=== PATIENT | male | born 1970 | race Two or more races ===

== ENCOUNTER → 2016-04-23 | Outpatient (CLI) | payer OTHER, SELFPAY | END | disposition disaster alternative care site (69) | LOC: GRAD 07:50 | DX: R31.9 Hematuria, unspecified (principal); K44.9 Diaphragmatic hernia without obstruction or gangrene; R93.421 Abnormal radiologic findings on diagnostic imaging of right kidney; R93.422 Abnormal radiologic findings on diagnostic imaging of left kidney ==

== ENCOUNTER → 2016-04-28 | Outpatient (CLI) | payer OTHER, SELFPAY | END | disposition disaster alternative care site (69) | LOC: GRAD 08:17 | DX: N28.1 Cyst of kidney, acquired (principal) ==